=== PATIENT | female | born 1980 ===

== ENCOUNTER 2019-09-26 10:36 | Inpatient (IN) ==
[2019-09-26] MEDS ORDERED: *HR* Nalbuphine 10 MG/ML AMPUL IVP PRN (11:12)
[2019-09-26] MEDS ORDERED: Ondansetron 4 MG/2 ML VIAL IVP PRN (11:12)
[2019-09-26] MEDS ORDERED: Azithromycin 500 MG in 0.9 % Sodium Chloride 250 ML IVPB ONE (11:12)
[2019-09-26] MEDS ORDERED: Famotidine 20 MG/2 ML VIAL IVP PRN (11:12)
[2019-09-26] MEDS ORDERED: Lidocaine 1% 20 ML MDV INFILT PRN (11:12)
[2019-09-26] MEDS ORDERED: Naloxone 0.4 MG/ML INJ IVP PRN (11:12)
[2019-09-26] MEDS ORDERED: miSOPROStoL 25 MCG TABLET PO PRN (11:12)
[2019-09-26] MEDS ORDERED: Metoclopramide 10 MG/2 ML VIAL IVP PRN (11:12)
[2019-09-26] MEDS ORDERED: NIFEdipine 10 MG CAPSULE PO ONE (11:25)
[2019-09-26 11:43] LABS: Amphetamine Screen,Urine Negative ng/mL (Cutoff=1000); Barbiturate Screen,Urine Negative ng/mL (Cutoff=200); Benzodiazepines Screen,Urine Negative ng/mL (Cutoff=200); Cannabinoid Screen,Urine Negative ng/mL (Cutoff = 50); Cocaine Screen,Urine Negative ng/mL (Cutoff= 300); Opiate Screen,Urine Negative ng/mL (Cutoff=300); Phencyclidine Screen,Urine Negative ng/mL (Cutoff=25); Protein/Creatinine Ratio,Urine 0.31 mg/mg (0.00-0.20)
[2019-09-26] MEDS: Ringers Solution, Lactated 1,000 ML IVC SCH ×2 (11:45→16:10)
[2019-09-26] MEDS ORDERED: Oxytocin 20 units/ LR 1000 mL 20 UNIT/1,000 ML BAG IVC SCH (12:00)
[2019-09-26 12:02] LABS: Alanine Aminotransferase 12 Units/L (7-52); Aspartate Amino Transferase 21 Units/L (13-39); BUN/Creatinine Ratio 12 (6-26); Blood Urea Nitrogen 10 mg/dL (6-20); Lactate Dehydrogenase 246 Units/L (140-271); Uric Acid 5.4 mg/dL (2.3-7.6); eGFR For African Americans > 60 (> 60); eGFR For Non-African Americans > 60 (> 60)
[2019-09-26] MEDS: Magnesium Sulf 20gm/LR 500mL 20 GM/500 ML IV.SOLN IVC SCH ×2 (12:17→22:59)
[2019-09-26] MEDS ORDERED: Calcium Gluconate 1,000 MG/10 ML VIAL ONE (12:28)
[2019-09-26 12:41] LABS: Basophils # 0.1 K/mcL (0.0-0.2); Basophils % 0.4 %; Eosinophils # 0.2 K/mcL (0.0-0.6); Eosinophils % 1.1 %; Hematocrit 40.2 % (35.3-44.9); Hemoglobin 13.5 g/dL (11.5-15.4); Immature Granulocytes % 0.8 % (0-4); Lymphocytes # 3.4 K/mcL (0.6-4.6); Lymphocytes % 25.6 %; Mean Corpuscular HGB Conc 33.6 g/dL (31.6-35.5); Mean Corpuscular Hemoglobin 30.2 pg (28.0-33.3); Mean Corpuscular Volume 89.9 fL (83.0-100.0); Mean Platelet Volume 10.8 fL (9.4-12.4); Monocytes # 0.6 K/mcL (0.0-1.3); Monocytes % 4.8 %; Platelet Count 301 K/mcL (140-400); Red Blood Count 4.47 M/mcL (3.82-4.97); Segmented Neutrophils % 67.3 %; White Blood Count 13.4 K/mcL (4.3-11.1)
[2019-09-26] MEDS ORDERED: hydrALAZINE 10 MG TABLET PO PRN (13:33)
[2019-09-26] MEDS ORDERED: Epidural Premix (fent/bupiv) 110 ML EP ONE (15:00)
[2019-09-26] MEDS: Epidural Premix (fent/bupiv) 110 ML EP SCH (16:10)
[2019-09-26] MEDS ORDERED: Acetaminophen IV 1,000 MG/100 ML INFUS..BTL IVPB ONE (17:20)
[2019-09-26 17:45] LABS: Basophils # 0.1 K/mcL (0.0-0.2); Basophils % 0.3 %; Eosinophils % 0.2 %; Hematocrit 42.1 % (35.3-44.9); Immature Granulocytes % 1.2 % (0-4); Lymphocytes # 2.1 K/mcL (0.6-4.6); Lymphocytes % 10.8 %; Mean Corpuscular HGB Conc 33.3 g/dL (31.6-35.5); Mean Corpuscular Hemoglobin 29.5 pg (28.0-33.3); Mean Corpuscular Volume 88.8 fL (83.0-100.0); Mean Platelet Volume 10.6 fL (9.4-12.4); Monocytes # 0.5 K/mcL (0.0-1.3); Monocytes % 2.7 %; Neutrophils # 16.1 K/mcL (1.6-8.9); Platelet Count 328 K/mcL (140-400); Red Blood Count 4.74 M/mcL (3.82-4.97); Red Cell Distribution Width 14.3 % (11.5-14.5); Segmented Neutrophils % 84.8 %
[2019-09-26 18:08] LABS: Aspartate Amino Transferase 15 Units/L (13-39); BUN/Creatinine Ratio 12 (6-26); Blood Urea Nitrogen 10 mg/dL (6-20); eGFR For African Americans > 60 (> 60); eGFR For Non-African Americans > 60 (> 60)
[2019-09-27] MEDS: Epidural Premix (fent/bupiv) 110 ML EP SCH (00:39)
[2019-09-27] MEDS ORDERED: Famotidine 20 MG/2 ML VIAL IVP ONE (01:05)
[2019-09-27] MEDS ORDERED: Metoclopramide 10 MG/2 ML VIAL IVP ONE (01:05)
[2019-09-27] MEDS ORDERED: CeFAZolin Premix DUPLEX 2,000 MG/50 ML BAG IVPB ONE (01:10)
[2019-09-27] MEDS ORDERED: Azithromycin 500 MG in 0.9 % Sodium Chloride 250 ML IVPB ONE (01:13)
[2019-09-27 02:14] LABS: Basophils # 0.1 K/mcL (0.0-0.2); Basophils % 0.3 %; Eosinophils % 0.1 %; Hematocrit 42.2 % (35.3-44.9); Hemoglobin 14.1 g/dL (11.5-15.4); Immature Granulocytes % 2.6 % (0-4); Lymphocytes # 2.2 K/mcL (0.6-4.6); Mean Corpuscular HGB Conc 33.4 g/dL (31.6-35.5); Mean Corpuscular Hemoglobin 30.1 pg (28.0-33.3); Mean Platelet Volume 10.3 fL (9.4-12.4); Monocytes # 0.8 K/mcL (0.0-1.3); Monocytes % 3.5 %; Neutrophils # 18.1 K/mcL (1.6-8.9); Platelet Count 355 K/mcL (140-400); Red Blood Count 4.69 M/mcL (3.82-4.97); Red Cell Distribution Width 14.4 % (11.5-14.5); Segmented Neutrophils % 83.5 %; White Blood Count 21.7 K/mcL (4.3-11.1)
[2019-09-27 02:35] LABS: Alanine Aminotransferase 15 Units/L (7-52); Aspartate Amino Transferase 18 Units/L (13-39); BUN/Creatinine Ratio 11 (6-26); Blood Urea Nitrogen 11 mg/dL (6-20); Lactate Dehydrogenase 173 Units/L (140-271); Uric Acid 6.6 mg/dL (2.3-7.6); eGFR For African Americans > 60 (> 60); eGFR For Non-African Americans > 60 (> 60)
[2019-09-27] MEDS ORDERED: *HR* Morphine Sulfate/PF 10 MG/10 ML AMPUL ONE (02:53)
[2019-09-27] MEDS ORDERED: Dexamethasone 4 MG/ML VIAL ONE (03:15)
[2019-09-27] MEDS ORDERED: Ketorolac 30 MG/ML VIAL ONE (03:15)
[2019-09-27] MEDS ORDERED: Ondansetron 4 MG/2 ML VIAL ONE (03:15)
[2019-09-27] MEDS ORDERED: *HR* Oxytocin 10 UNIT/ML VIAL IM ONE ×2 (03:15→04:20)
[2019-09-27] MEDS ORDERED: Ondansetron 4 MG/2 ML VIAL IVP PRN ×2 (04:28→07:03)
[2019-09-27] MEDS ORDERED: *HR* OxyCODONE/APAP 5/325 TABLET PO PRN (04:28)
[2019-09-27] MEDS ORDERED: Ibuprofen 400 MG TABLET PO PRN (04:28)
[2019-09-27] MEDS ORDERED: *HR* Meperidine 25 MG/ML SYRINGE IVP PRN (04:29)
[2019-09-27] MEDS ORDERED: Magnesium Sulf 20gm/LR 500mL 20 GM/500 ML IV.SOLN IVC SCH (04:30)
[2019-09-27] MEDS ORDERED: Oxytocin 20 units/ LR 1000 mL 20 UNIT/1,000 ML BAG IVC SCH (07:03)
[2019-09-27] MEDS ORDERED: Simethicone 80 MG TAB.CHEW PO PRN (07:03)
[2019-09-27] MEDS ORDERED: Metoclopramide 10 MG/2 ML VIAL IVP PRN (07:03)
[2019-09-27] MEDS ORDERED: Acetaminophen 325 MG TABLET PO PRN (07:03)
[2019-09-27] MEDS ORDERED: Rho Immune Globulin 1,500 UNIT SYRINGE IM ONE (07:03)
[2019-09-27] MEDS ORDERED: Ketorolac 30 MG/ML VIAL IM SCH (07:03)
[2019-09-27] MEDS ORDERED: Sennosides 8.6 MG TABLET PO PRN (07:03)
[2019-09-27] MEDS: Prenatal Vit/FA 1 EACH TABLET PO SCH (08:29)
[2019-09-27] MEDS: Magnesium Sulf 20gm/LR 500mL 20 GM/500 ML IV.SOLN IVC SCH ×2 (11:10→23:20)
[2019-09-27] MEDS ORDERED: Ketorolac 30 MG/ML VIAL IVP PRN (13:55)
[2019-09-27] MEDS ORDERED: Ringers Solution, Lactated 500 ML IVC ONE ×2 (13:56→17:50)
[2019-09-27] MEDS: NIFEdipine XL (24 HR) 30 MG TAB.ER.24 PO SCH (14:16)
[2019-09-27 18:59] LABS: eGFR For African Americans > 60 (> 60); eGFR For Non-African Americans > 60 (> 60)
[2019-09-28] MEDS ORDERED: Ibuprofen 600 MG TABLET PO PRN (02:18)
[2019-09-28] MEDS: *HR* OxyCODONE Immed Rel 5 MG TABLET PO PRN ×2 (02:21→13:38)
[2019-09-28] MEDS: Prenatal Vit/FA 1 EACH TABLET PO SCH (07:49)
[2019-09-28] MEDS: NIFEdipine XL (24 HR) 30 MG TAB.ER.24 PO SCH (07:49)
[2019-09-28 09:40] LABS: Basophils % 0.2 %; Eosinophils # 0.1 K/mcL (0.0-0.6); Eosinophils % 0.3 %; Hematocrit 37.3 % (35.3-44.9); Immature Granulocytes % 0.7 % (0-4); Lymphocytes # 1.9 K/mcL (0.6-4.6); Lymphocytes % 11.1 %; Mean Corpuscular HGB Conc 33.2 g/dL (31.6-35.5); Mean Corpuscular Hemoglobin 30.8 pg (28.0-33.3); Mean Corpuscular Volume 92.6 fL (83.0-100.0); Mean Platelet Volume 10.1 fL (9.4-12.4); Monocytes # 0.4 K/mcL (0.0-1.3); Monocytes % 2.1 %; Platelet Count 298 K/mcL (140-400); Red Blood Count 4.03 M/mcL (3.82-4.97); Red Cell Distribution Width 14.6 % (11.5-14.5); Segmented Neutrophils % 85.6 %; White Blood Count 17.5 K/mcL (4.3-11.1)
[2019-09-28 09:42] LABS: Hemoglobin 12.4 g/dL (11.5-15.4)
[2019-09-28 22:38] VITALS: BP 135/74
== END 2019-09-28 21:45 | disposition home or self-care (01) | DRG 788 ==
LOC: 1NENULAB → OBSVTOIN 10:36 → 1NENUOBS 09-27 07:33
PROVIDERS: ADMIT Advanced Practice Midwife; ATTEND Advanced Practice Midwife